=== PATIENT | female | born 1960 | race Caucasian/White ===

== ENCOUNTER → 2017-04-11 | Outpatient (CLI) | payer OTHER ==
--- NOTE | 2017-04-11 16:54 | PCVCIMAG ---
APPROVED REPORT Exam: Stress Echocardiogram Indication: Chest pain , Dyspnea , Pre-Operative CV evaluation Patient Location: Echo lab Stress Nurse: Danita Aj RN Status: routine HR: 99 bpm Rhythm: NSR Medical History Cardiac Risk Factors: FHX of CAD Procedure The patient underwent an Exercise Stress Test using the Dave Protocol. Blood pressure, heart rate, and EKG were monitored. An Echocardiogram was performed by environmental field services technician in four stages in quad fashion. At peak stress, four selected images were obtained and placed side by side with resting images for comparison. Stress Test Details Stress Test: Exercise stress testing was performed using a Dave protocol. HR Resting HR: 99 bpmMax Heart Rate (APMHR): 164 bpm Max HR Achieved: 164 bpmTarget HR (85% APMHR): 139 bpm % of APMHR: 100 Recovery HR: 107 bpm HR response to stress: Normal HR response to stress BP Resting BP: 128/72 mmHg Max BP: 168/62 mmHg Recovery BP: 138/76 mmHg ECG Resting ECG: Sinus Rhythm Stress ECG: Sinus Rhythm ST Change: Normal Arrhythmia: Occasional Isolated PVCs and PACs Recovery ECG: Sinus Rhythm Recovery ST Change: Normal Recovery Arrhythmia: None Clinical Reason for Termination: Maximal effort Stress Symptoms: Non-limiting Chest pain Exercise duration: 9 min 28 sec Highest Stage Achieved: Stage 4: 4.2 mph at 16% grade. Exercise capacity: 11.4 METs Overall Exercise Capacity for Age: Normal Pre-Stress Echo The resting Echocardiogram showed normal left ventricular contractility with an estimated Ejection Fraction of about >55%. Normal wall motion in all segments on baseline images. Post-Stress Echo The stress Echocardiogram showed normal left ventricular contractility with an estimated Ejection Fraction of about 65%. Normal augmentation of wall motion in all segments on post stress images. Clinical No clinical or ECG evidence for ischemia. Conclusion Clinical Response: Non-ischemic Exercise Capacity: Average Stress ECG Response: Non-ischemic Stress Echo Images: Non-ischemic Mild mitral regurgitation. Non-limiting chest pain that did not increase in intensity at peak exertion. Other Information Study Quality: Adequate <Conclusion> Mild mitral regurgitation. Non-limiting chest pain that did not increase in intensity at peak exertion.
== END | disposition home or self-care (01) ==
LOC: PCVCIMAG 11:49
PROVIDERS: ATTEND Internal Medicine Cardiovascular Disease
DX: Z01.810 Encounter for preprocedural cardiovascular examination (principal); R07.9 Chest pain, unspecified; I49.3 Ventricular premature depolarization; I49.1 Atrial premature depolarization; I34.0 Nonrheumatic mitral (valve) insufficiency; R06.02 Shortness of breath; R00.2 Palpitations; M48.02 Spinal stenosis, cervical region; E78.00 Pure hypercholesterolemia, unspecified; Z90.49 Acquired absence of other specified parts of digestive tract; Z90.710 Acquired absence of both cervix and uterus
CPT/HCPCS: 80061; 93005; 93325; 93351; G0463

== ENCOUNTER → 2018-09-07 | Outpatient (CLI) | payer OTHER ==
--- NOTE | 2018-09-07 17:06 | PCVCIMAG ---
APPROVED REPORT Study performed: 09/07/2018 15:47:54 Exam: Stress Echocardiogram Indication: Dyspnea , tachycardia, Patient Location: Echo lab Stress Nurse: Danita Aj RN Room #: 1 Status: routine Ht: 5 ft 8 in HR: 110 bpm BP: 142/86 mmHg Rhythm: NSR,tachycardia Medical History Medical History: HTN,tachycardia,dyspnea Cardiac Risk Factors: HTN Previous Cardiac Procedures: none Pretest Chest Pain Characteristics: No chest pain Exercise History: Physically active Procedure The patient underwent an Exercise Stress Test using the Dave Protocol. Blood pressure, heart rate, and EKG were monitored. An Echocardiogram was performed by agronomy technician in four stages in quad fashion. At peak stress, four selected images were obtained and placed side by side with resting images for comparison. Stress Test Details Stress Test: Exercise stress testing was performed using a Dave protocol. HR Resting HR: 110 bpmMax Heart Rate (APMHR): 162 bpm Max HR Achieved: 171 bpmTarget HR (85% APMHR): 137 bpm % of APMHR: 105 Recovery HR: 125 bpm HR response to stress: Accelerated HR response to stress- patient held her rate control medicine BP Resting BP: 142/86 mmHg Max BP: 200/76 mmHg Recovery BP: 146/78 mmHg BP response to stress: Normal blood pressure response to stress. ECG Resting ECG: Sinus Tachycardia Stress ECG: Sinus Rhythm ST Change: Non-ischemic Arrhythmia: Rare PVCs Recovery ECG: Sinus Tachycardia Recovery ST Change: Non-ischemic Recovery Arrhythmia: Rare PVCs Clinical Reason for Termination: Maximal effort Stress Symptoms: Dyspnea, Leg Fatigue Exercise duration: 7 min 20 sec Highest Stage Achieved: Stage 3: 3.4 mph at 14% grade. Exercise capacity: 10.1 METs Overall Exercise Capacity for Age: Average Scale: Active Angina Score: None No complications. Stress ECG Conclusion The patient exercised according to the DAVE protocol for 7:20 mins; achieving a work level of 10.1 METS. The resting heart rate of 110 bpm swetha to a maximum heart rate of 171 bpm. This value represent 105% of the maximal, age-predicted heart rate. The resting blood pressure of 142/86 mmHg, swetha to a maximum blood pressure of 200/76 mmHg. The exercise test was stopped due to fatigue. Pre-Stress Echo The resting Echocardiogram showed normal left ventricular contractility with an estimated Ejection Fraction of about 55-60%. Normal wall motion in all segments on baseline images. Post-Stress Echo The stress Echocardiogram showed normal left ventricular contractility with an estimated Ejection Fraction of about 65-70%. Normal augmentation of wall motion in all segments on post stress images. Clinical No clinical or ECG evidence for ischemia. Conclusion Clinical Response: Non-ischemic Exercise Capacity: Below Average Stress ECG Response: Non-ischemic Stress Echo Images: Non-ischemic No clinical, EKG or echocardiographic evidence for ischemia. No echocardiographic evidence for exercise induced ischemia. Normal stress echocardiogram with maximal exercise stress. Compared to the prior study dated 04-11-2017, exercise time has decreased by 1:55 min.. <Conclusion> No clinical, EKG or echocardiographic evidence for ischemia. No echocardiographic evidence for exercise induced ischemia. Normal stress echocardiogram with maximal exercise stress.
== END | disposition home or self-care (01) ==
LOC: PCVCIMAG 15:43
PROVIDERS: ATTEND Internal Medicine Cardiovascular Disease
DX: R00.2 Palpitations (principal); R00.0 Tachycardia, unspecified; I10 Essential (primary) hypertension
CPT/HCPCS: 93325; 93351